=== PATIENT | female | born 1955 | race Caucasian/White ===

== ENCOUNTER 2017-05-30 00:32 | Emergency (ER) | payer MEDICARE ==
[~2017-05-30] VITALS: Ht 170.2 cm; Wt 63.6 kg
[~2017-05-30 00:32] MED LIST: CYCL5TAB PO; DIAZ2TAB2 PO; HYDR-3479 PO; Thyroid PO
[2017-05-30 00:35] VITALS: BP 102/58; PULSE 81; RESP 30; O2SAT 100
[2017-05-30] MEDS ORDERED: TRAM50TA2 PO (00:47)
--- NOTE | 2017-05-30 01:00 | ED.REPORT ---
HPI-Headache Date of Service May 30, 2017 ED Provider: Ezra Simon MD Pt is a 62 year old female with a hx of fibromyalgia presenting to the ED via EMS complaining of the worst headache of her life onset when she woke up from at nap at 1700 tonight, worsened around 2030. Associated symptoms include nausea , and vomiting. She denies a hx of migraines or any similar symptoms previously , recent trauma, or fever. The pt is unable to speak secondary to pain so her answered questions. Nursing Notes Stated Complaint: HEADACHE Chief Complaint: Headache Nursing Notes Reviewed: Yes Allergies: Coded Allergies: Penicillins (Verified Allergy, Severe, 05/30/17) Scheduled ([Thyroid]) 120 MG PO DAILY Scheduled PRN Diazepam (Diazepam) 2 Mg Tablet 2 MG PO TID PRN PRN For Anxiety Ondansetron ODT (Ondansetron ODT) 8 Mg Tab.rapdis 8 MG PO QID PRN PRN nat Prochlorperazine Maleate (Compazine Suppository) 25 Mg Supp.rect 25 MG RC Q8 PRN PRN For Nausea/Vomiting Rizatriptan ODT (Rizatriptan) 10 Mg Tablet 10 MG PO ONCE PRN PRN migraine Tramadol (Tramadol) 50 Mg Tablet 50 MG PO HS PRN PRN For Pain General Time Seen by MD: 00:56 Chief Complaint Worst headache of life Hx Obtained From: Patient, EMS Arrived By: Ambulance Sudden in Onset?: No Onset Occurred: 5 - 8 hours ago Symptom Duration: Since onset Quality: Painful Severity: Current: Severe Severity: Maximum: Severe Recent Healthcare: No recent doctor visit, No recent hospitalization Similar Sx Previous: No Past Medical History Past Medical History Fibromyalgia ovarian cyst Past Surgical History denies Smoking History Never Smoker Social History Alcohol Use: Denies alcohol use Drug Use: Denies drug use Other Social History: Ambulatory Status Independent Review of Systems Unable to Obtain ROS Patient condition Constitutional: Denies: Fever GI: Reports: Nausea, Vomiting Neurologic: Reports: Headache Physical Exam Initial Vital Signs Vital Signs (First) Date Time Temp Pulse Resp B/P Pulse Ox O2 Delivery O2 Flow Rate FiO2 05/30/17 00:35 36.5 81 30 102/58 100 Room Air Initial VS: Reviewed ENT: Mucous membranes moist, Conjunctiva normal, No scleral icterus Respiratory: Breath sounds normal, Clear to auscultation, No respiratory distress Cardiovascular: Regular rate & rhythm, Heart sounds normal, Intact distal pulses Abdomen / GI: Soft, Non-tender, No guarding, No rebound, No distention Extremities: Vascular intact, Neuro intact, No swelling, No tenderness Skin: Warm, Dry, No cyanosis Psychiatric: Mood/affect normal, Behavior normal, Normal thought content General/Constitutional: Awake, Alert Head / Eyes: Atraumatic, Normocephalic, PERRL, EOMI Neck: Atraumatic, Supple, No meningismus, Full range of motion Neurologic: Oriented X3, Speech NL, No motor deficits, No sensory deficits, CN II - XII intact, Cerebellar NL Interpretation & Diagnostics Lab Results Interpretation Result Diagram: 05/30/17 0034 05/30/17 0034 Test 05/30/17 00:34 White Blood Count 10.9th/mm3 (3.8-10.1) Red Blood Count 5.36mil/mm3 (3.90-5.20) Hemoglobin 15.8g/dL (12.0-15.6) Hematocrit 47.1% (35.0-46.0) Mean Corpuscular Volume 87.9fL (81-100) Mean Corpuscular Hemoglobin 29.5pg (27.0-35.0) Mean Corpuscular Hemoglobin Concent 33.5% (32.0-37.0) Red Cell Distribution Width 12.8% (12.3-15.4) Platelet Count 335bil/L (150-400) Neutrophils (%) (Auto) 36.1% (40-74) Lymphocytes (%) (Auto) 54.3% (14-46) Monocytes (%) (Auto) 6.7% (4-12) Eosinophils (%) (Auto) 2.0% (0-5) Basophils (%) (Auto) 0.6% (0-3) Erythrocyte Sedimentation Rate 5mm/hr (0-40) Prothrombin Time 9.6sec (8.1-12.5) Prothromb Time International Ratio 0.90ratio Activated Partial Thromboplast Time 20.1sec (22.8-33.0) Sodium Level 140mEq/L (134-144) Potassium Level 4.1mEq/L (3.5-5.2) Chloride Level 99mEq/L (97-108) Carbon Dioxide Level 24mmol/L (18-29) Blood Urea Nitrogen 19mg/dL (8-27) Creatinine 0.92mg/dL (0.57-1.00) Estimat Glomerular Filtration Rate 88mL/min (>59) Glucose Level 135mg/dL (60-99) Calcium Level 9.5mg/dL (8.5-10.1) C-Reactive Protein 0.1mg/dL (0.0-0.5) CT Head Interpretation IMPRESSION: No CT evidence of hemorrhage, mass, or acute infarct. This report was transmitted to the emergency room at 05/30/2017 02:37:03 AM PDT Study: Head CT no contrast Interpretation / Wet Read by: Interpret - Radiologist Re-Eval/Medical Decision Med Decision/Clinical Course 62-year-old female presents with a headache and no history of migraines. CT is negative. No fever no stiff neck. No other neurologic findings and concern. She is improved with a migraine cocktail here. Low risk for meningitis and no strong indication to insist on LP at this time. Home with Rizatriptan and Compazine. Follow up with PCP. Prompt return if worse. Re-Evaluation/Progress : Time of Eval: 02:45 )( Patient Status: Condition improved Re-Evaluation/Progress Note: Discussed CT results and plan for discharge. Pt understands and agrees with plan. Counseled Regarding: Diagnosis, Lab results, Need for follow-up, When/why to return to ED Discharge & Departure Impression: Primary Impression: Migraine Migraine type: unspecified Status migrainosus presence: without status migrainosus Intractability: intractable Qualified Code: G43.919 - Migraine, unspecified, intractable, without status migrainosus Disposition: Home Discharge Condition All VS Reviewed: Yes Condition: Improved Patient Instructions: Migraine Headache (ED) Additional Instructions: Your evaluation is benign at this point. There is very low likelihood of bleed or meningitis. If you continue to have headaches of this sort, additional evaluation is advised including MRI/MRA or CT angiogram. For now, you may treat acute onset headaches of this sort with rizatriptan, and nausea with ondansetron or Compazine. Follow-up with your doctor in the office. If you need a primary care physician, see the referral information below. Return here for any immediate issues including worsening pain or any new symptoms of concern. Referrals: Yao López MD (PCP) Scribe Attestation Portions of this note were transcribed by Gosia Dia. I, Dr. Simon personally performed the history, physical exam and medical decision-making; I reviewed and confirmed the accuracy of the information in the transcribed note. Signed by: Lakhwinder Gan, 05/29/2017. copies to: Yao López MD, Christopher W MD May 30, 2017 01:00 GOSIA DIA May 30, 2017 01:07
[2017-05-30] MEDS ORDERED: Haloperidol 5 mg/mL Inj IVPUSH ONE (01:05)
[2017-05-30] MEDS ORDERED: Ondansetron 2 mg/mL 2 mL Inj IVPUSH ONE (01:05)
[2017-05-30] MEDS ORDERED: Dexamethasone 10 mg/mL Inj IVPUSH ONE (01:05)
[2017-05-30] MEDS ORDERED: 0.9% Sodium Chloride 1,000 ML IV ONE (01:05)
[2017-05-30 01:18] LABS: BASOPHILS % (AUTO) 0.6 % (0-3); MONOCYTES % (AUTO) 6.7 % (4-12); Mean Corpuscular Hemoglobin 29.5 pg (27.0-35.0); Mean Corpuscular Volume 87.9 fL (81-100); NEUTROPHILS % (AUTO) 36.1 % (40-74); Platelet Count 335 bil/L (150-400)
[2017-05-30 01:35] LABS: INR 0.9 ratio
[2017-05-30 01:37] LABS: ERYTHROCYTE SEDIMENTATION RATE 5 mm/hr (0-40)
[2017-05-30] MEDS ORDERED: RIZA10TA28 PO (02:51)
[2017-05-30] MEDS ORDERED: ONDA8TAB10 PO (02:52)
[2017-05-30] MEDS ORDERED: PROC25SU30 RC (02:52)
[2017-05-30 03:11] VITALS: BP 110/67; PULSE 100; RESP 16; O2SAT 99
--- NOTE | 2017-05-30 08:03 | DRSVH ---
PROCEDURE: CT BRAIN WITHOUT CONTRAST ([id number]) INDICATIONS: acute onset sadler, first and worst TECHNIQUE: Noncontrast 4.5 mm thick angled axial sections acquired from the foramen magnum to the vertex, with c oronal reformats. COMPARISON: [facility], CT, BRAIN W/O CONTRAST, 08/25/2006, 15:25. FINDINGS: Image quality: Excellent. CSF spaces: Basal cisterns are patent. No extra-axial fluid collections. Ventricles are normal in size and shape. Brain: No midline shift. No intracranial masses or hemorrhage. Moses-white matter interface is norm al. Skull and face: Calvarium and visualized facial bones are intact, without suspicious lesions. Sinuses: Visualized sinuses and mastoids are clear. IMPRESSION: No CT evidence of acute intracranial pathology. There are no discrepancies with the preliminary report. Dictated by: Yordy Ann M.D. on 05/30/2017 at 7:59 Approved by: Yordy Ann M.D. on 05/30/2017 at 8:01
== END 2017-05-30 03:11 | disposition home or self-care (01) ==
LOC: SED 00:32
DX: G43.919 Migraine, unspecified, intractable, without status migrainosus (principal); R11.2 Nausea with vomiting, unspecified; Z88.0 Allergy status to penicillin
CPT/HCPCS: 36415; 70450; 80048; 85025; 85610; 85651; 85730; 86140; 96361; 96374; 96375; 99285; J1100; J1200; J1630; J2405; J7030